=== PATIENT | male | born 1995 ===

== ENCOUNTER 2017-08-08 22:06 | Emergency (ER) | payer BC ==
[2017-08-08 22:30] VITALS: BP 130/88; PULSE 73; RESP 18; TEMP 97.9; O2SAT 98
[2017-08-08] MEDS ORDERED: Apap-Butalbital-Caffeine 325-50-40mg Tab PO STA (23:58)
[2017-08-09] MEDS ORDERED: Apap-Butalbital-Caffeine 325-50-40mg Tab ONE (00:01)
--- NOTE | 2017-08-09 00:59 | C.PDOC ---
History Of Present Illness 21 year old male presents to the ED for evaluation of headaches which have been occurring intermittently for the past 3 weeks. Patient states the ache begins at the base of his head and radiates forward. He notes his symptoms are typically worse at night. Patient has a recent history of head injury that occurred several months ago. Patient has undergone CT Head scans which have been unremarkable. Patient denies vision change, extremity numbness/weakness, urinary/bowel incontinence, nausea, vomiting. Time Seen by Provider: 08/08/17 22:31 Chief Complaint (Nursing): Headache History Per: Patient History/Exam Limitations: no limitations Onset/Duration Of Symptoms: Intermittent Episodes (3 weeks ) Current Symptoms Are (Timing): Still Present Quality: Aching Preceeding Symptoms: denies: Visual Disturbances, Known Migraine Symptoms Associated Symptoms: denies: Blurred Vision, Nausea, Vomiting, Extremity Weakness Additional History Per: Patient Past Medical History Reviewed: Historical Data, Nursing Documentation, Vital Signs Vital Signs: Last Vital Signs Temp 97.9 F 08/08/17 22:29 Pulse 73 08/08/17 22:29 Resp 18 08/08/17 22:29 BP 130/88 08/08/17 22:29 Pulse Ox 98 08/09/17 02:12 - Medical History PMH: No Chronic Diseases Surgical History: No Surg Hx - [facility] Procedures 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 Negative for: Weakness, Numbness Physical Exam - Physical Exam Appears: Non-toxic, No Acute Distress Skin: Normal Color, Warm, Dry, No Rash Head: Atraumatic, Normacephalic, No Tenderness, No Swelling Eye(s): bilateral: Normal Inspection, PERRL, EOMI Ear(s): Bilateral: Normal Oral Mucosa: Moist Throat: No Erythema, No Exudate Neck: Normal ROM, Supple Chest: Symmetrical, No Deformity, No Tenderness Cardiovascular: Rhythm Regular, No Murmur Respiratory: Normal Breath Sounds, No Rales, No Rhonchi, No Wheezing Extremity: Normal ROM, No Calf Tenderness, Capillary Refill (less than 2 seconds ), No Swelling Neurological/Psych: Oriented x3, Normal Speech, Normal Cognition, Normal Cranial Nerves, Normal Motor, Normal Sensation, Other (no focal deficits ) Gait: Steady ED Course And Treatment O2 Sat by Pulse Oximetry: 98 (on RA) Pulse Ox Interpretation: Normal Progress Note: Patient received Fioricet PO and Reglan PO. I discussed the risk (radiation) and benefit (finding a problem neeing surgery) with the patient. The patient is acting normally and has an unremarkable neurological exam. The likelihood of finding a lesion needing intervention on the CT scan is extremely low. Patient agrees that no CT scan will be done at this time. Patient is resting comfortably, showing no signs of distress and is stable for discharge. Patient is advised to follow up with his PMD within 1-2 days for further evaluaiton and/or return to the ED if symptoms return or worsen. Medical Decision Making Medical Decision Making: On re-exam, the patient reports improvement of symptoms. Lungs are CTA, heart is RRR, abdomen is soft, non-tender and tolerating PO well. Ambulatory in the ED with steady gait. Follow up with the medical doctor within 1-2 days. Return if worsened. Disposition - Disposition Referrals: Gianluca Esparza MD [Staff Provider] - Disposition: HOME/ ROUTINE Disposition Time: 00:57 Condition: GOOD Additional Instructions: Follow up with the medical doctor tomorrow without fail. Return if worsened. Prescriptions: Acetaminophen/Butalbital/Caf [Fioricet] 1 tab PO TID PRN #20 tab PRN Reason: Headache Metoclopramide [Reglan] 1 tab PO TID PRN #25 tab PRN Reason: Nausea/Vomiting Instructions: Tension Headache (ED) Forms: [employer] (Indonesian) - Clinical Impression Clinical Impression: Headache - PA / PATIENT SUPPORT PARTNER / Resident Statement MD/DO has reviewed & agrees with the documentation as recorded. - Scribe Statement The provider has reviewed the documentation as recorded by the Scribe (Carmina Witt) All medical record entries made by the Scribe were at my direction and personally dictated by me. I have reviewed the chart and agree that the record accurately reflects my personal performance of the history, physical exam, medical decision making, and the department course for this patient. I have also personally directed, reviewed, and agree with the discharge instructions and disposition.
== END 2017-08-09 01:04 | disposition home or self-care (01) ==
LOC: C.ER 22:06
DX: R51 Headache (principal)